=== PATIENT | male | born 1975 ===

== ENCOUNTER 2020-01-23 11:17 | Emergency (ER) | payer OTHER ==
[~2020-01-23] VITALS: Ht 172.7 cm; Wt 97.5 kg
[2020-01-23] MEDS ORDERED: BENICAR20 MG PO (11:57)
[2020-01-23] MEDS ORDERED: BYSTOLIC10 MG PO (11:57)
[2020-01-23] MEDS ORDERED: KETO10TA2 PO (16:24)
[2020-01-23] MEDS ORDERED: TAMS0.4C PO (16:24)
[2020-01-23] MEDS ORDERED: PYRIDIUM200 MG PO (16:30)
== END 2020-01-23 16:42 | disposition home or self-care (01) ==
LOC: ER 11:17
DX: N20.2 Calculus of kidney with calculus of ureter (principal)

== ENCOUNTER 2020-04-08 08:30 | Day surgery (SDC) | payer OTHER ==
[~2020-04-08 08:30] MED LIST: BENICAR20 MG PO; BYSTOLIC10 MG PO; KETO10TA2 PO; PYRIDIUM200 MG PO; TAMS0.4C PO
== END 2020-04-08 15:50 | disposition home or self-care (01) ==
LOC: CIR.AMB 08:30
PROVIDERS: ATTEND Urology
DX: N20.1 Calculus of ureter (principal)

== ENCOUNTER 2020-04-13 08:05 | Outpatient (CLI) | payer OTHER | END 2020-04-13 08:06 | disposition home or self-care (01) | LOC: RAD 08:05 | PROVIDERS: ATTEND Urology | DX: N20.1 Calculus of ureter (principal) ==